=== PATIENT | female | born 1950 | race Caucasian/White ===

== ENCOUNTER → 2016-09-01 | Outpatient (CLI) | payer OTHER ==
--- NOTE | 2016-09-01 17:12 | US ---
Right Lower Extremity Deep Venous Duplex Ultrasound Indication: Right lower extremity pain and swelling. Technique: The right lower extremity deep venous system and veins of the proximal calf were interroga obdulio with grayscale, color, and spectral Doppler imaging. Findings: The common femoral, femoral, popliteal, greater saphenous and posterior tibial and peroneal veins of the calf normally compress on grayscale imaging. The deep venous system and superficial vei ns of the proximal calf have normal flow and expected variability. No fluid collection or edema. Impression: Negative. No deep venous thrombosis. Comment: The negative results were discussed with Dr. Mitzy Plaza at 4:40 p.m. on September 01, 2016.
== END ==
LOC: FIMAGING 15:39
PROVIDERS: ATTEND Internal Medicine Infectious Disease
DX: M79.661 Pain in right lower leg (principal); M79.89 Other specified soft tissue disorders

== ENCOUNTER → 2018-05-11 | Outpatient (CLI) | payer OTHER | LOC: FIMAGING 11:29 | PROVIDERS: ATTEND Family Medicine | DX: Z12.31 Encounter for screening mammogram for malignant neoplasm of breast (principal); Z80.3 Family history of malignant neoplasm of breast ==